=== PATIENT | female | born 1945 | race Caucasian/White ===

== ENCOUNTER 2018-04-27 15:53 | Emergency (ER) | payer OTHER, BC ==
[2018-04-27] MEDS ORDERED: NS 1,000 ML IV ONE (16:16)
--- NOTE | 2018-04-27 16:16 | EDPHY ---
H & P Stated Complaint: DYSURIA/HEMATURIA Time Seen by Provider: 04/27/18 16:07 HPI/ROS: CHIEF COMPLAINT: Hematuria HISTORY OF PRESENT ILLNESS: Patient is a 72-year-old female who noticed that her urine is dark and a reddish colored today. It has happened 3 times today. No fever. No back pain. No suprapubic pain. No dysuria. No frequency. This happened 1 single time a week ago and then resolved spontaneously. She denies history of cancer. Nonsmoker. No history of bleeding disorder. She has been working a lot in her garden lifting heavy things but does not have any sore muscles. No vaginal bleeding. No nausea vomiting. No diarrhea. No blood in her stool. No recent viral infections. Severity: Moderate Modifying factors: None REVIEW OF SYSTEMS: Constitutional: denies: chills, fever, recent illness, recent injury EENTM: denies: blurred vision, double vision, nose congestion Respiratory: denies: cough, shortness of breath Cardiac: denies: chest pain, irregular heart rate, lightheadedness, palpitations Gastrointestinal/Abdominal: denies: abdominal pain, diarrhea, nausea, vomiting, blood streaked stools Genitourinary: See HPI denies: dysuria, frequency, pain Musculoskeletal: denies: joint pain, muscle pain Skin: denies: lesions, rash, jaundice, bruising Neurological: denies: headache, numbness, paresthesia, tingling, dizziness, weakness Hematologic/Lymphatic: denies: blood clots, easy bleeding, easy bruising Immunologic/allergic: denies: HIV/AIDS, transplant 10 systems reviewed and negative except as noted EXAM: GENERAL: Well-appearing, well-nourished and in no acute distress. HEAD: Atraumatic, normocephalic. EYES: Pupils equal round and reactive to light, extraocular movements intact, sclera anicteric, conjunctiva are normal. ENT: TMs normal, nares patent, oropharynx clear without exudates. Moist mucous membranes. NECK: Normal range of motion, supple without lymphadenopathy or JVD. LUNGS: Breath sounds clear to auscultation bilaterally and equal. No wheezes rales or rhonchi. HEART: Regular rate and rhythm without murmurs, rubs or gallops. ABDOMEN: Soft, nontender, normoactive bowel sounds. No guarding, no rebound. No masses appreciated. BACK: No CVA tenderness, no spinal tenderness, step-offs or deformities EXTREMITIES: Normal range of motion, no pitting or edema. No clubbing or cyanosis. NEUROLOGICAL: Cranial nerves II through XII grossly intact. Normal speech, normal gait. 5/5 strength, normal movement in all extremities, normal sensation , normal reflexes PSYCH: Normal mood, normal affect. SKIN: Warm, dry, normal turgor, no visible rashes or lesions. Source: Patient, Family Exam Limitations: No limitations - Personal History Current Tetanus Diphtheria and Acellular Pertussis (TDAP): Yes - Medical/Surgical History Hx Asthma: No Hx Chronic Respiratory Disease: No Hx Diabetes: No Hx Cardiac Disease: No Hx Renal Disease: No Hx Cirrhosis: No Hx Alcoholism: No Hx HIV/AIDS: No Hx Splenectomy or Spleen Trauma: No Other PMH: DENIES - Family History Significant Family History: No pertinent family hx - Social History Smoking Status: Never smoked Alcohol Use: Sober Drug Use: None Constitutional: Initial Vital Signs Temperature (C) 36.9 C 04/27/18 15:58 Heart Rate 79 04/27/18 15:58 Respiratory Rate 18 04/27/18 15:58 Blood Pressure 139/93 H 04/27/18 15:58 O2 Sat (%) 97 04/27/18 15:58 O2 Delivery Mode Room Air Allergies/Adverse Reactions: No Known Allergies Allergy (Verified 04/27/18 15:57) Home Medications: Medication Instructions Recorded Cephalexin [Keflex] 500 mg PO TID #21 cap 04/27/18 Medical Decision Making - Diagnostics Imaging Results: Imaging Impressions Abdomen/Pelvis CT 04/27/18 16:48 Impression: 1. There is no evidence of nephroureterolithiasis or obstructive uropathy. 2. There is a macrolobulated soft tissue mass in the posterior aspect of the urinary bladder measuring 3.7 x 7.6 x 4.4 cm. Cystoscopic evaluation is recommended in this patient with hematuria. 3. There is an incompletely-evaluated nodular opacity in the medial right lower lobe, and there are hypodense lesions seen near the hepatic dome and in the inferomedial right hepatic lobe. When clinically feasible, contrast-enhanced CT imaging of the chest, abdomen, and pelvis is recommended. 4. Calcified uterine fibroid. 5. Moderate constipation. Attention: This CT examination is specifically designed to evaluate patients who are clinically suspected of having acute obstructive uropathy. This examination does not use radiographic contrast, and as such, provides only a limited evaluation of the abdomen, pelvis, and retroperitoneum. If there is further clinical suspicion for pathological conditions other than obstructive uropathy, a complete CT evaluation of the abdomen and pelvis utilizing intravenous, oral, and rectal contrast should be considered. Findings and recommendations were discussed with NOÉ CHARLES MD at 17:24, on 04/27/2018. Imaging: I viewed and interpreted images myself ED Course/Re-evaluation: We discussed at length the CT results. I recommended follow-up CT of the patient's liver and lung with her primary in the next month. Have paged urology for discussion of her bladder tumor and hematuria with also several white cells. Doctor Rody is currently in the OR and will call back. 550 I spoke with Urology. She does recommend Keflex and follow-up in their office on Tuesday for scope. Differential Diagnosis: Partial list of the Differential diagnosis considered include but were not limited to; kidney stone, urinary tract infection, bladder cancer and although unlikely based on the history and physical exam, I also considered diverticulitis, appendicitis, hernia, vaginal bleeding - Data Points Laboratory Results: Laboratory Results 04/27/18 16:23 04/27/18 16:23 04/27/18 04/27/18 04/27/18 16:23 16:23 16:23 WBC 8.06 10^3/uL 10^3/uL (3.80-9.50) RBC 4.64 10^6/uL 10^6/uL (4.18-5.33) Hgb 14.8 g/dL g/dL (12.6-16.3) Hct 44.1 % % (38.0-47.0) MCV 95.0 fL fL (81.5-99.8) MCH 31.9 pg pg (27.9-34.1) MCHC 33.6 g/dL g/dL (32.4-36.7) RDW 11.7 % % (11.5-15.2) Plt Count 281 10^3/uL 10^3/uL (150-400) MPV 9.3 fL fL (8.7-11.7) Neut % (Auto) 62.8 % % (39.3-74.2) Lymph % (Auto) 29.8 % % (15.0-45.0) [place] % (Auto) 5.7 % % (4.5-13.0) Eos % (Auto) 1.1 % % (0.6-7.6) Baso % (Auto) 0.4 % % (0.3-1.7) Nucleat RBC Rel Count 0.0 % % (0.0-0.2) Absolute Neuts (auto) 5.06 10^3/uL 10^3/uL (1.70-6.50) Absolute Lymphs (auto) 2.40 10^3/uL 10^3/uL (1.00-3.00) Absolute Monos (auto) 0.46 10^3/uL 10^3/uL (0.30-0.80) Absolute Eos (auto) 0.09 10^3/uL 10^3/uL (0.03-0.40) Absolute Basos (auto) 0.03 10^3/uL 10^3/uL (0.02-0.10) Absolute Nucleated RBC 0.00 10^3/uL 10^3/uL (0-0.01) Immature Gran % 0.2 % % (0.0-1.1) Immature Gran # 0.02 10^3/uL 10^3/uL (0.00-0.10) PT 13.3 SEC SEC (12.0-15.0) INR 0.99 (0.83-1.16) APTT 28.2 SEC SEC (23.0-38.0) Sodium 138 mEq/L mEq/L (135-145) Potassium 3.8 mEq/L mEq/L (3.3-5.0) Chloride 103 mEq/L mEq/L (97-110) Carbon Dioxide 26 mEq/l mEq/l (22-31) Anion Gap 9 mEq/L mEq/L (6-14) BUN 27 mg/dL H mg/dL (7-23) Creatinine 1.0 mg/dL mg/dL (0.6-1.0) Estimated GFR 55 Glucose 98 mg/dL mg/dL (70-100) Calcium 9.5 mg/dL mg/dL (8.5-10.4) Total Bilirubin 0.3 mg/dL mg/dL (0.1-1.4) Conjugated Bilirubin 0.1 mg/dL mg/dL (0.0-0.5) Unconjugated Bilirubin 0.2 mg/dL mg/dL (0.0-1.1) AST 43 IU/L IU/L (14-46) ALT 33 IU/L IU/L (9-52) Alkaline Phosphatase 65 IU/L IU/L (38-126) Creatine Kinase 772 IU/L H IU/L (0-156) CK-MB (CK-2) Fraction 4.57 ng/mL H ng/mL (0.00-4.55) CK-MB (CK-2) % 0.6 % % (0.0-4.0) Creatine Kinase Interp NEGATIVE (NEGATIVE) Total Protein 7.1 g/dL g/dL (6.3-8.2) Albumin 4.4 g/dL g/dL (3.5-5.0) Lipase 244 IU/L IU/L (23-300) Urine Color Urine Appearance Urine pH Ur Specific [address] Urine Protein Urine Ketones Urine Blood Urine Nitrate Urine Bilirubin Urine Urobilinogen Ur Leukocyte Esterase Urine RBC Urine WBC Ur Epithelial Cells Urine Bacteria Urine Mucus Urine Glucose 04/27/18 16:00 WBC RBC Hgb Hct MCV MCH MCHC RDW Plt Count MPV Neut % (Auto) Lymph % (Auto) [place] % (Auto) Eos % (Auto) Baso % (Auto) Nucleat RBC Rel Count Absolute Neuts (auto) Absolute Lymphs (auto) Absolute Monos (auto) Absolute Eos (auto) Absolute Basos (auto) Absolute Nucleated RBC Immature Gran % Immature Gran # PT INR APTT Sodium Potassium Chloride Carbon Dioxide Anion Gap BUN Creatinine Estimated GFR Glucose Calcium Total Bilirubin Conjugated Bilirubin Unconjugated Bilirubin AST ALT Alkaline Phosphatase Creatine Kinase CK-MB (CK-2) Fraction CK-MB (CK-2) % Creatine Kinase Interp Total Protein Albumin Lipase Urine Color RED Urine Appearance HAZY Urine pH 6.0 (5.0-7.5) Ur Specific [address] 1.010 (1.002-1.030) Urine Protein 2+ H (NEGATIVE) Urine Ketones NEGATIVE (NEGATIVE) Urine Blood 2+ H (NEGATIVE) Urine Nitrate NEGATIVE (NEGATIVE) Urine Bilirubin NEGATIVE (NEGATIVE) Urine Urobilinogen NEGATIVE EU EU (0.2-1.0) Ur Leukocyte Esterase NEGATIVE (NEGATIVE) Urine RBC 50-182 /hpf H /hpf (0-3) Urine WBC 10-15 /hpf H /hpf (0-3) Ur Epithelial Cells TRACE /lpf /lpf (NONE-1+) Urine Bacteria TRACE /hpf H /hpf (NONE SEEN) Urine Mucus TRACE /lpf /lpf (NONE-1+) Urine Glucose NEGATIVE (NEGATIVE) Medications Given: Discontinued Medications Cephalexin HCl (Keflex) 500 mg PO EDNOW ONE PRN Reason: Protocol Stop: 04/27/18 17:51 Last Admin: 04/27/18 18:02 Dose: 500 mg Sodium Chloride (Ns) 1,000 mls @ 0 mls/hr IV EDNOW ONE; Wide Open PRN Reason: Protocol Stop: 04/27/18 16:17 Last Admin: 04/27/18 16:27 Dose: 1,000 mls Departure - Departure Disposition: Home, Routine, Self-Care Clinical Impression: Bladder mass Hematuria Qualifiers: Hematuria type: gross Qualified Code(s): R31.0 - Gross hematuria Condition: Fair Instructions: Hematuria (ED) Additional Instructions: You have a lesion in the right middle lobe of the lung and several small lesions in your liver follow up with her primary for CT imaging of these areas for further delineation. Follow-up with Urology as we discussed for scope. Referrals: Kiera Oreilly MD [Primary Care Provider] - 2-3 days, call for appt. Wilda Fine MD [Medical Doctor] - 2-3 days, call for appt. Prescriptions: Cephalexin [Keflex] 500 mg PO TID #21 cap
[2018-04-27 16:35] LABS: PLATELET COUNT 281 10^3/uL (150-400)
[2018-04-27 16:42] LABS: INR 0.99 (0.83-1.16); PROTIME(PATIENT) 13.3 SEC (12.0-15.0)
[2018-04-27 16:55] LABS: CREATINE KINASE 772 IU/L (0-156)
[2018-04-27] MEDS ORDERED: CEPHALEXIN 500 MG CAP PO ONE (17:50)
[2018-04-27 18:09] VITALS: BP 126/70
== END 2018-04-27 18:09 | disposition home or self-care (01) ==
DX: R19.00 Intra-abdominal and pelvic swelling, mass and lump, unspecified site (principal); R31.0 Gross hematuria; E86.9 Volume depletion, unspecified

== ENCOUNTER → 2018-05-01 | Outpatient (CLI) | payer OTHER, BC ==
[~2018-05-01] MED LIST: IOPAMIDOL (ISOVUE-300) 100 ML BTL ONE
== END ==
LOC: FIMAGING 09:42
PROVIDERS: ATTEND Family Medicine
DX: R31.9 Hematuria, unspecified (principal); N32.89 Other specified disorders of bladder; K76.89 Other specified diseases of liver; R91.1 Solitary pulmonary nodule
CPT/HCPCS: 71260; 74177; Q9967

== ENCOUNTER 2018-05-11 13:47 | Observation (INO) | payer OTHER, BC ==
[2018-05-11] MEDS ORDERED: LIDOCAINE 1% 2 ML INJ ID PRN (14:06)
[2018-05-11] MEDS ORDERED: LR 1,000 ML IV ONE (14:06)
[2018-05-11] MEDS ORDERED: MITOMYCIN INVES ONE (15:30)
[2018-05-11] MEDS ORDERED: ceFAZolin 2 GM in NS 100 ML IV ONE (15:55)
--- NOTE | 2018-05-11 15:55 | PDHPUP ---
History & Physical Update H&P update statement: This history and physical update is based on an assessment of the patient which was completed after admission or registration (within 24 hours), but prior to the surgery/procedure. H&P update: H&P reviewed & patient examined, no change in patient's condition since H&P completed
[2018-05-11] MEDS ORDERED: OPIUM/BELLADONNA ALKALO SUPP PR ONE (15:56)
[2018-05-11] MEDS ORDERED: ceFAZolin 2 GM/DEXTROSE 100 ML IV ONE (16:00)
--- NOTE | 2018-05-11 16:53 | PDANEPAE ---
ANE History of Present Illness 72 yo with large bladder tumor ANE Past Medical History - Cardiovascular History Hx Hypertension: No Hx Arrhythmias: No Hx Chest Pain: No Hx Coronary Artery / Peripheral Vascular Disease: No Hx CHF / Valvular Disease: No Hx Palpitations: No - Pulmonary History Hx COPD: No Hx Asthma/Reactive Airway Disease: No Hx Recent Upper Respiratory Infection: No Hx Oxygen in Use at Home: No Hx Sleep Apnea: No Sleep Apnea Screening Result - Last Documented: Negative - Neurologic History Hx Cerebrovascular Accident: No Hx Seizures: No Hx Dementia: No - Endocrine History Hx Diabetes: No Obesity: no - Renal History Hx Renal Disorders: Yes Renal History Comment: tumors in bladder currently - Liver History Hx Hepatic Disorders: No - Neurological & Psychiatric Hx Hx Neurological and Psychiatric Disorders: Yes Neurological / Psychiatric History Comment: anxiety r/t surgery - Cancer History Hx Cancer: No - Congenital Disorder History Hx Congenital Disorders: No - GI History GERD: no Hx Gastrointestinal Disorders: No - Other Health History Other Health History: wears reading glasses. dry skin - Chronic Pain History Chronic Pain: No - Surgical History Prior Surgeries: tonsillectomy. uterine fribroids removed. lasik surgeries- bilaterally. cataract surgeries- bilaterally ANE Review of Systems Review of systems is: negative Review of Systems: - Exercise capacity METS (RN): 4 METS ANE Patient History - Allergies Allergies/Adverse Reactions: No Known Allergies Allergy (Verified 05/10/18 16:20) - Home Medications Home Medications: NK [No Known Home Meds] 05/10/18 [Last Taken Unknown] - NPO status NPO Since - Liquids (Date): 05/11/18 NPO Since - Liquids (Time): 10:30 NPO Since - Solids (Date): 05/10/18 NPO Since - Solids (Time): 17:30 - Anes Hx Anes Hx: no prior problems, post operative nausea - Smoking Hx Smoking Status: Never smoked - Alcohol Use Alcohol Use: None - Family Anes Hx Family Anes Hx: none Family Hx Anesthesia Complications: none ANE Labs/Vital Signs - Vital Signs Blood Pressure: 148/81 Heart Rate: 66 Respiratory Rate: 18 O2 Sat (%): 100 Height: 166.37 cm Weight: 58.967 kg ANE Physical Exam - Airway Neck exam: FROM Mallampati Score: Class 2 Mouth exam: normal dental/mouth exam - Pulmonary Pulmonary: no respiratory distress, clear to auscultation - Cardiovascular Cardiovascular: regular rate and rhythym, no murmur, rub, or gallop - ASA Status ASA Status: II ANE Anesthesia Plan Anesthesia Plan: general endotracheal anesthesia
[2018-05-11] MEDS ORDERED: PROPOFOL 200 MG/20 ML VIAL ONE (17:05)
[2018-05-11] MEDS ORDERED: fentaNYL 100 MCG/2 ML INJ ONE (17:05)
[2018-05-11] MEDS ORDERED: ROCURONIUM 50 MG/5 ML VIAL ONE (17:05)
[2018-05-11] MEDS ORDERED: LIDOCAINE 2% 2 ML INJ ONE (17:06)
[2018-05-11] MEDS ORDERED: IOPAMIDOL (ISOVUE-M 300) 15 ML VIAL ONE (17:43)
[2018-05-11] MEDS ORDERED: ALBUTEROL 3 ML DEYVIAL IH PRN (17:53)
[2018-05-11] MEDS ORDERED: HYDROCODONE/APAP 5/325 TAB PO PRN (17:53)
[2018-05-11] MEDS ORDERED: DEXAMETHASONE 4 MG/ML VIAL IVP PRN (17:53)
[2018-05-11] MEDS ORDERED: NALOXONE HCL 0.4 MG/ML INJ IVP PRN (17:53)
[2018-05-11] MEDS ORDERED: HYDROmorphONE/DILAUDID 2 MG/ML INJ IVP PRN (17:53)
[2018-05-11] MEDS ORDERED: ONDANSETRON 4 MG/2 ML VIAL IVP PRN ×2 (17:53→22:11)
[2018-05-11] MEDS ORDERED: fentaNYL 100 MCG/2 ML INJ IVP PRN (17:53)
--- NOTE | 2018-05-11 19:35 | POSTANESTH ---
Post Anesthetic Evaluation Cardiovascular Status: Normal, Stable Respiratory Status: Normal, Stable Level of Consciousness/Mental Status: Can Participate in Eval, Alert and Oriented Pain Control: Adequate, Prn Tx Ordered Nausea/Vomiting Control: Adequate, Prn Tx Ordered Complications Possibly Related to Anesthesia: None Noted
--- NOTE | 2018-05-11 19:53 | POSTOPPROG ---
Post Op Note Date of Operation: 05/11/18 Surgeon: Wilda Fine Anesthesiologist: Otis Anesthesia: GET(General Endotracheal) Pre-op Diagnosis: bladder tumors Post-op Diagnosis: bladder tumor, large 5cm Indication: bladder tumor Procedure: cysto, bilateral RGP, right ureteral stent, TURBT Findings: large bladder tumor right lateral wall, small tumor anterior bladder neck Inf/Abcess present in the surg proc area at time of surgery?: No EBL: Minimal Complications: none, pt tolerated procedure well Drains: Other (wong)
[2018-05-11] MEDS: OPIUM/BELLADONNA ALKALO SUPP PR PRN (20:16)
[2018-05-11] MEDS ORDERED: HYDROCODONE/APAP 5/325 TAB ONE (21:31)
[2018-05-11] MEDS: PHENAZOPYRIDINE HCL 200 MG TAB PO SCH (21:33)
[2018-05-11] MEDS ORDERED: HYDROmorphONE/DILAUDID 1 MG/ML INJ IVP PRN (22:13)
[2018-05-11] MEDS: D5W LR 1,000 ML IV SCH (22:47)
--- NOTE | 2018-05-11 23:42 | GOP ---
DATE OF OPERATION: 05/11/2018 SURGEON: Wilda Fine MD ANESTHESIA: General. ANESTHESIOLOGIST: Cornelio Berg DO. PREOPERATIVE DIAGNOSIS: Bladder tumors. POSTOPERATIVE DIAGNOSIS: Bladder tumors, large >5cm and 1cm. PROCEDURE PERFORMED: Cystoscopy, bilateral retrograde pyelogram, transurethral resection of bladder tumor, large, 5 cm, and right ureteral stent and intraoperative fluoroscopy. FINDINGS: >5cm right tumor around the right UO and laterally laterally up right lateral wall and posteriorly. Frondular with carpet like low lying tumor extending from the main tumor. A second tumor anterior bladder neck. ESTIMATED BLOOD LOSS: Minimal. INDICATIONS: Bladder tumors and gross hematuria. DESCRIPTION OF PROCEDURE: The patient was taken to the cystoscopy suite, placed on the cystoscopy table in supine position. General anesthesia induced without complication. Time-out performed and core measures satisfied including placement of a Dontrell Hugger, SCDs, and administration of 2 g Ancef antibiotic. She was brought to the end of the table and placed in dorsal lithotomy position. All pressure points padded. Genitalia draped and prepped in a standard surgical fashion with Betadine. A rigid cystoscope easily cannulated the urethral meatus and was advanced atraumatically into the bladder with a 30- degree lens. I did sun cystoscopy. I was able to get a good look at the left ureteral orifice. At that point I did a left retrograde pyelogram, and the ureter was delicate although very tortuous at the proximal aspect, but otherwise no filling defects and the calices of the kidney were sharp and not dilated with a normal retrograde. I could not see the right ureteral orifice with cystoscope because there was tumor that was overlying the Right ureteral orifice, so I then assembled the TURis resectoscope and began then resecting the right-sided lateral tumor systematically. I did send superficial specimen separately from deep specimen. I did resect to the muscle and deeper in a several areas, very small deeper sections but did not perforate significantly. The main area of the tumor was thick, and I am concerned that there could be muscle invasion of this tumor, but the superificial tumor was very frondular, very large. The large tumor at the base was very vascular. The main tumor had lots of frondular finger extensions and then there was the base of the tumor that was very wide that lower lying tumor extended up the right lateral wall. Around the right ureteral orifice, there was lower lying papillary tumor. I did not resect over the UO, but did try and fulgurate the papillary tumor. I did feel that I got nearly all of this tumor removed, and the only area that I feel is concerning really is the extent of the size of the tumor, the thickness of the main area of the tumor, and it growing up and around the right UO. I felt due to its proximity to the R UO and my fulguration of tumor in this area that I would place a right ureteral stent at the end of the procedure. She also had another 1 cm tumor on the anterior bladder wall that was removed with a few swipes of my resectoscope, and again I did send deep and superficial separately on this anterior tumor as well. I then removed the TURIs resectoscope and replaced the cystoscope and placed a wire into the ureteral orifice and did a retrograde pyelogram demonstrating no ureteral extravasation, demonstrating a delicate ureter with delicate calices that were sharp in the kidney and no filling defects. I also did this retrograde because the CT urogram did not have delayed images of the ureters on it for complete evaluation. I then did place a 6-[place] multivariable stent over a wire with cystoscopic and fluoroscopic guidance, and there was a nice curl in the renal pelvis and a nice curl in the bladder. At this point, I looked around the bladder again. All tumor pieces had been removed. I removed the scope and then placed a Canales with good drainage. Her abdomen was soft, and at this point the procedure was considered complete. Lidocaine jelly placed per urethra. At this point, the procedure was considered complete. She was awoken from anesthesia and transferred to PACU in good condition. COMPLICATIONS: None. The patient tolerated the procedure well. INDICATIONS: The patient presented to my office after having gross hematuria in the ER a week ago. I did a cystoscopy after looking at the CT scan that showed a bladder tumor, and the cystoscopy showed a very large right lateral wall bladder tumor, very frondular. I could not see the right ureteral orifice at that cystoscopy in my clinic, and there was also an anterior tumor at the bladder neck, about 1 cm. She also had a CT scan with and without contrast. It was not a CT urogram, so ureters were not opacified on the scan, but the scan also did show a lytic lesion in the sacrum which is being investigated with a nuclear medicine bone scan in the near future. I did go over the need to find pathology for this tumor as well as the risks in detail in my office and then preoperative. Risks included bleeding; infection; pain; injury to the urethra, the bladder, the ureters; need for subsequent procedures; perforation of the bladder requiring subsequent procedures; need for Canales catheter and possible installation of mitomycin-C. They understood these risks and agreed to proceed. /[id number]/MODL MTDD
[2018-05-11] MEDS: OXYBUTYNIN CHLORIDE 5 MG TAB PO SCH (23:51)
[2018-05-11] MEDS: CEPHALEXIN 500 MG CAP PO SCH (23:51)
[2018-05-12] MEDS: OPIUM/BELLADONNA ALKALO SUPP PR PRN (01:55)
[2018-05-12] MEDS ORDERED: HYDROmorphONE/DILAUDID 2 MG/ML INJ IVP PRN (03:30)
[2018-05-12] MEDS: HYDROCODONE/APAP 5/325 TAB PO PRN ×2 (04:32→06:22)
[2018-05-12] MEDS: CEPHALEXIN 500 MG CAP PO SCH (04:32)
[2018-05-12] MEDS: D5W LR 1,000 ML IV SCH (06:39)
--- NOTE | 2018-05-12 08:38 | SOAPPROG ---
SOAP Progress Note Assessment/Plan: Assessment: s/p TURBT, stent placement Doing well, jacki diet. Wants to get DC today. Bladder spasms have subsided. Plan: DC home today w wong catheter. Remove wong next week in my office, we will call her w appt time. Awaiting path results. NM bone scan today as outpatient Will plan CT scan head due to new recent onset of memory issues 05/12/18 08:30 05/12/18 08:39 Subjective: TURBT yesterday, admitted for bladder spasms. Feeling good this morning. Ready to go home. Last night in [facility] was very confused, didn't know why she was here and could not remember having bladder tumor. However, now very alert, oriented. Speaking w today, she has new memory issues and he want info relayed to him that due to her forgetfulness. Objective: Vital Signs Temp Pulse Resp BP Pulse Ox 36.5 C 60 18 112/76 97 05/12/18 04:33 05/12/18 04:33 05/12/18 04:33 05/12/18 04:33 05/12/18 04:33 05/11/18 05/12/18 05/13/18 05:59 05:59 05:59 Intake Total 2893 Output Total 900 Balance 1992 AFVSS Gen NAD A&O CV regular Lungs normal effort Abd soft, nontender, nondistended. Ext warm wong in place, urine draining clear - Time Spent With Patient Time Spent With Patient: 30 minutes spent face to face - Pending Discharge Pending Discharge Within 24 Hours: Yes Pending Discharge Date: 05/13/18 Pending Discharge Time: 11:00 ICD10 Worksheet Patient Problems: Problems Problem Status Onset Bladder neoplasm Acute - ICD10 Problem Qualifiers (1) Bladder neoplasm
[2018-05-12] MEDS ORDERED: SENNOSIDES/DOCUSATE SODIUM TAB PO SCH (09:00)
--- NOTE | 2018-05-12 09:33 | ASMTLACE ---
LACE Length of stay for Answers: Less than 1 day current admission Acuity / Level of Answers: No Care: Did the patient have an inpatient admission? Comorbidities - select Answers: Any tumor (including all that apply lymphoma or leukemia) # of Emergency department Answers: 1-2 visits in the last 6 months Social determinants Answers: Mental health diagnosis (anxiety, depression, pers onality disorders, etc.) Score: 6 Date Signed: 05/12/2018 09:31 AM Electronically Signed By:Joann Virk RN
--- NOTE | 2018-05-12 09:36 | ASMTCMCOM ---
CM Note CM Note Notes: Chart reviewed for discharge planning purposes. 72 year old female s/p bladder mass resection. She has been medically cleared per urology for discharge to home. No Pt/Ot evals done. No current needs identified. CM available should needs arise. plan: Dc to home with family. No needs, Date Signed: 05/12/2018 09:35 AM Electronically Signed By:Joann Virk RN
[2018-05-12] MEDS: PHENAZOPYRIDINE HCL 200 MG TAB PO SCH (09:40)
[2018-05-12] MEDS: OXYBUTYNIN CHLORIDE 5 MG TAB PO SCH (09:41)
[2018-05-12 09:51] VITALS: BP 116/59
== END 2018-05-12 10:48 | disposition home or self-care (01) ==
LOC: FSGY 13:47 → F1N 21:49
PROVIDERS: ADMIT Urology; ATTEND Urology
DX: N32.89 Other specified disorders of bladder (principal)
CPT/HCPCS: 52235; 52332; 76001; C1758; C1769; C2625; G0378; G0379; J0690; J2704; J3010; Q9967; J9280

== ENCOUNTER → 2018-05-12 | Outpatient (CLI) | payer OTHER, BC | LOC: FIMAGING 10:57 | PROVIDERS: ATTEND Urology | DX: R31.9 Hematuria, unspecified (principal); R93.5 Abnormal findings on diagnostic imaging of other abdominal regions, including retroperitoneum | CPT/HCPCS: 78306; A9503 ==

== ENCOUNTER → 2018-06-23 | Outpatient (CLI) | payer OTHER, BC | LOC: FIMAGING 09:29 | PROVIDERS: ATTEND Urology | DX: Z09 Encounter for follow-up examination after completed treatment for conditions other than malignant neoplasm (principal); R93.41 Abnormal radiologic findings on diagnostic imaging of renal pelvis, ureter, or bladder ==

== ENCOUNTER 2018-07-20 09:31 | Day surgery (SDC) | payer OTHER, BC ==
[2018-07-20] MEDS ORDERED: ceFAZolin 2 GM/DEXTROSE 100 ML IV ONE (09:46)
[2018-07-20] MEDS ORDERED: LIDOCAINE 1% 2 ML INJ ID PRN (09:47)
[2018-07-20] MEDS ORDERED: LR 1,000 ML IV ONE (09:47)
[2018-07-20] MEDS ORDERED: SUGAMMADEX SODIUM 200 MG/2 ML VIAL IVP ONE (09:50)
[2018-07-20] MEDS ORDERED: LIDOCAINE 2% 2 ML INJ ONE (09:50)
[2018-07-20] MEDS ORDERED: ONDANSETRON 4 MG/2 ML VIAL ONE (09:50)
[2018-07-20] MEDS ORDERED: ROCURONIUM 50 MG/5 ML VIAL ONE (09:50)
[2018-07-20] MEDS ORDERED: PROPOFOL 200 MG/20 ML VIAL ONE (09:50)
[2018-07-20] MEDS ORDERED: fentaNYL 100 MCG/2 ML INJ ONE (09:50)
[2018-07-20] MEDS ORDERED: DEXAMETHASONE 4 MG/ML VIAL ONE (09:50)
[2018-07-20] MEDS ORDERED: MIDAZOLAM 2 MG/2 ML VIAL IVP ONE (10:03)
--- NOTE | 2018-07-20 10:03 | PDANEPAE ---
ANE Past Medical History - Cardiovascular History Hx Hypertension: No Hx Arrhythmias: No Hx Chest Pain: No Hx Coronary Artery / Peripheral Vascular Disease: No Hx CHF / Valvular Disease: No Hx Palpitations: No - Pulmonary History Hx COPD: No Hx Asthma/Reactive Airway Disease: No Hx Recent Upper Respiratory Infection: No Hx Oxygen in Use at Home: No Hx Sleep Apnea: No Sleep Apnea Screening Result - Last Documented: Negative - Neurologic History Hx Cerebrovascular Accident: No Hx Seizures: No Hx Dementia: No - Endocrine History Hx Diabetes: No - Renal History Hx Renal Disorders: Yes Renal History Comment: tumors in bladder currently - Liver History Hx Hepatic Disorders: No - Neurological & Psychiatric Hx Hx Neurological and Psychiatric Disorders: Yes Neurological / Psychiatric History Comment: anxiety r/t surgery - Cancer History Hx Cancer: No - Congenital Disorder History Hx Congenital Disorders: No - GI History Hx Gastrointestinal Disorders: No - Other Health History Other Health History: wears reading glasses. dry skin - Chronic Pain History Chronic Pain: No - Surgical History Prior Surgeries: TURBT WITH URETER STENT 04/2018. tonsillectomy. uterine fribroids removed. lasik surgeries- bilaterally. cataract surgeries- bilaterally ANE Review of Systems Review of Systems: - Exercise capacity METS (RN): 4 METS ANE Patient History - Allergies Allergies/Adverse Reactions: No Known Allergies Allergy (Verified 05/10/18 16:20) - Home Medications Home Medications: Naproxen PRN 06/16/18 [Last Taken 3 Weeks Ago ~06/29/18] - Anes Hx Anes Hx: post operative cognitive dysfunction - Smoking Hx Smoking Status: Never smoked - Family Anes Hx Family Anes Hx: none Family Hx Anesthesia Complications: none ANE Labs/Vital Signs - Vital Signs Height: 166.37 cm Weight: 58.967 kg ANE Physical Exam - Airway Neck exam: FROM Mallampati Score: Class 1 Mouth exam: normal dental/mouth exam - Pulmonary Pulmonary: no respiratory distress, no rales or rhonchi, clear to auscultation - Cardiovascular Cardiovascular: regular rate and rhythym, no murmur, rub, or gallop - ASA Status ASA Status: II ANE Anesthesia Plan Anesthesia Plan: general endotracheal anesthesia (Patient had a 24 hour period of confusion after last anesthesia. Looked at old record but nothing out of the ordinary (a MILANA GA with minimal narcotic). Will try no versed and a TIVA today with Dextrose in IV due to tendancy for her to be hypoglycemic. ) Total IV Anesthesia: Yes
[2018-07-20] MEDS ORDERED: HYDROmorphONE/DILAUDID 2 MG/ML INJ IVP PRN (10:04)
[2018-07-20] MEDS ORDERED: LR 500 ML IV PRN (10:04)
[2018-07-20] MEDS ORDERED: PROMETHAZINE HCL 25 MG/ML INJ IVP PRN (10:04)
[2018-07-20] MEDS ORDERED: PHENYLEPHRINE HCL 100 MCG/ML SYR IVP PRN (10:04)
[2018-07-20] MEDS ORDERED: oxyCODONE IR 5 MG TAB PO PRN (10:04)
[2018-07-20] MEDS ORDERED: METOCLOPRAMIDE 10 MG/2 ML VIAL IVP PRN (10:04)
[2018-07-20] MEDS ORDERED: NALOXONE HCL 0.4 MG/ML INJ IVP PRN (10:04)
[2018-07-20] MEDS ORDERED: fentaNYL 100 MCG/2 ML INJ IVP PRN (10:04)
[2018-07-20] MEDS ORDERED: ONDANSETRON 4 MG/2 ML VIAL IVP PRN (10:04)
[2018-07-20] MEDS ORDERED: MEPERIDINE 25 MG/0.5 ML AMP IVP PRN (10:04)
[2018-07-20] MEDS ORDERED: OPIUM/BELLADONNA ALKALO SUPP PR PRN (10:35)
[2018-07-20] MEDS ORDERED: PROPOFOL/EMULSION 500 MG/50 ML BOTTLE IV ONE (10:44)
[2018-07-20] MEDS ORDERED: D50W 25 GM/50 ML VIAL ONE (10:53)
--- NOTE | 2018-07-20 11:36 | POSTANESTH ---
Post Anesthetic Evaluation Cardiovascular Status: Normal, Stable Respiratory Status: Normal, Stable Level of Consciousness/Mental Status: Can Participate in Eval Pain Control: Adequate, Prn Tx Ordered Nausea/Vomiting Control: Adequate, Prn Tx Ordered Complications Possibly Related to Anesthesia: None Noted
[2018-07-20] MEDS ORDERED: OPIUM/BELLADONNA ALKALO SUPP PR ONE (11:37)
[2018-07-20] MEDS ORDERED: LIDOCAINE 2% JELLY 20 ML (UROJECT) ONE (11:37)
[2018-07-20] MEDS ORDERED: MITOMYCIN INVES ONE (12:30)
[2018-07-20] MEDS ORDERED: SODIUM CL 0.9% INVES ONE (12:30)
--- NOTE | 2018-07-20 12:34 | POSTOPPROG ---
Post Op Note Date of Operation: 07/20/18 Surgeon: Wilda Fine Anesthesiologist: Elodia Anesthesia: GET(General Endotracheal) Pre-op Diagnosis: hx large bladder tumor Post-op Diagnosis: same Indication: hx large bladder tumor, 2nd look Procedure: cystoscopy, TURBT small Findings: area of prior resection healing but still erythematous, no other tumor Inf/Abcess present in the surg proc area at time of surgery?: No EBL: Minimal Complications: None, pt tolerated procedure well Drains: Other (wong)
[2018-07-20] MEDS ORDERED: PHENAZOPYRIDINE HCL 200 MG TAB PO SCH (13:00)
[2018-07-20 15:48] VITALS: BP 128/75
--- NOTE | 2018-07-21 14:15 | PDFACE2FAC ---
Face to Face Encounter 1. I certify that this patient is under my care and that I, or a nurse practitioner or physician's retail administrative assistant working with me, had a [id number] encounter that meets the physician [id number] encounter requirements with this patient on 07/21/18. Note date: 07/20/2018 = Patient was seen in the PACU, wong in place and verification made that all urine drained from bladder. Personal protective equipment was worne by me and patinet protected with drape. Then 40mg mitomycin in 40ml NS was instilled into bladder through catheter and catheter. She will keep this in her bladder for 1 hr, changing position every 15m and then chemotherapy drained and wong removed.
--- NOTE | 2018-07-21 16:14 | GOP ---
DATE OF OPERATION: 07/20/2018 SURGEON: Wilda Fine MD ANESTHESIA: General. ANESTHESIOLOGIST: Dr. Clifton. PREOPERATIVE DIAGNOSIS: History of noninvasive urothelial cell carcinoma, bladder tumor, large. POSTOPERATIVE DIAGNOSIS: History of noninvasive urothelial cell carcinoma, bladder tumor, large, without recurrence. PROCEDURE PERFORMED: Cystoscopy and transurethral resection of bladder tumor, small. FINDINGS: The area of prior resection along the right lateral wall near the right ureteral orifice was with scar and well healed, without necrosis, and there was no other recurrence in the bladder. ESTIMATED BLOOD LOSS: Minimal. INDICATIONS: History of a large bladder tumor and here for a second look. DESCRIPTION OF PROCEDURE: The patient was taken back to the cystoscopy suite, placed on the cystoscopy table in the supine position, general anesthesia induced without complication. Time-out performed and core measures satisfied, including placement of a Dontrell Hugger, SCDs, and administration of Ancef antibiotics. She was brought to the end of the table, placed in a dorsal lithotomy position. All pressure points padded. Genitalia draped and prepped in a standard surgical fashion with Betadine. A rigid cystoscope easily cannulated the urethral meatus, advanced atraumatically into the bladder. Pancystoscopy performed with both a 30 and 70 degree lens, and the area of the prior resection was well healed. There was still erythema around this area, but there was no necrotic tissue. The ureteral orifice on the right was patent. There was some slight irregularity to the mucosa inside the right UO but this appeared to be likely from prior resection and it did not appear to be consistent with malignancy. I looked at the anterior bladder neck, where there was a prior tumor removed and there were no abnormalities there, just well-healed scar tissue, and no other areas of concern in the bladder. I removed the cystoscope and then placed a transurethral resection resectoscope with an obturator and assembled the loop, and then did resect over the prior resection site to verify no additional pathology would be identified with a second look, given the large size of tumor, and it being papillary in the past. I kept the resection well away from the right ureteral orifice as I did not see any concern around the ureteral orifice and did not feel a stent would need to be placed. I do feel I got muscle in my specimen I sent. I used the [employer] evacuator to remove the bladder resection pieces. Hemostasis was maintained throughout with electrocautery. At the end of the procedure, I felt I had gotten all the prior area re-resected and hemostasis was excellent. The TURis resectoscope was removed and a Canales catheter was placed with return of clear urine. Belladonna , opium rectal suppository and lidocaine jelly were placed per urethra. She tolerated the procedure well, was transferred to PACU in good condition. Of note, I did place a Canales catheter with the anticipation of placing mitomycin -C into her bladder as part of post procedural tumor prevention recurrence and would place Mitomycin in PACU COMPLICATIONS: None. DRAINS: A Canales. /[id number]/MODL MTDD
== END 2018-07-20 17:13 | disposition home or self-care (01) ==
LOC: FSGY 09:31
PROVIDERS: ATTEND Urology
PROC: 0TBB8ZZ Excision of Bladder, Via Natural or Artificial Opening Endoscopic (ICD-10-PCS; principal; 2018-07-20 10:45)
DX: N32.89 Other specified disorders of bladder (principal); Z08 Encounter for follow-up examination after completed treatment for malignant neoplasm; Z85.51 Personal history of malignant neoplasm of bladder
CPT/HCPCS: J0690; J1100; J2405; J2704; J3010; J9280

== ENCOUNTER → 2018-09-12 | Outpatient (CLI) | payer OTHER, BC ==
[~2018-09-12] MED LIST changes: +GADOBUTROL 10 ML VIAL IVP ONE; -IOPAMIDOL (ISOVUE-300) 100 ML BTL ONE
== END ==
LOC: FIMAGING 09:53
PROVIDERS: ATTEND Family Medicine
DX: F03.90 Unspecified dementia, unspecified severity, without behavioral disturbance, psychotic disturbance, mood disturbance, and anxiety (principal)
CPT/HCPCS: 70553; A9585; 82565-PO

== ENCOUNTER → 2018-09-28 | Outpatient (CLI) | payer OTHER, BC | LOC: FIMAGING 13:03 | PROVIDERS: ATTEND Family Medicine | DX: Z13.820 Encounter for screening for osteoporosis (principal); M81.0 Age-related osteoporosis without current pathological fracture; Z78.0 Asymptomatic menopausal state ==